=== PATIENT | male | born 1970 | race Caucasian/White ===

== ENCOUNTER 2021-09-11 16:43 | Inpatient (IN) | payer OTHER, SELFPAY ==
[2021-09-11] VITALS (11 sets, daily range): BP systolic 150–230; BP diastolic 70–102; PULSE 56–105; RESP 16–84; TEMP 36.2–37.2; O2SAT 95–99; BMI 56.9; BMI 56.5
--- NOTE | 2021-09-11 16:49 | NURSING ---
NO OLD EKGS
--- NOTE | 2021-09-11 16:54 | EKG12_ITS ---
Test Reason : CP Blood Pressure : / mmHG Vent. Rate : 103 BPM Atrial Rate : 103 BPM P-R Int : 174 ms QRS Dur : 100 ms QT Int : 328 ms P-R-T Axes : 044 000 043 degrees QTc Int : 429 ms Sinus tachycardia with frequent Premature ventricular complexes in a pattern of bigeminy Otherwise normal ECG Confirmed by CLARK STORM, JACQUES ([id number]), medical editor ENDI THOMPSON ([id number]) on 09/13/2021 1:31:28 PM Referred By: IZZY Confirmed By:JACQUES RODAS MD
--- NOTE | 2021-09-11 17:10 | RAD_ITS ---
STUDY: X-RAY CHEST REASON FOR EXAM: Male, 51 years old. chest pain TECHNIQUE: 1 view COMPARISON: None. FINDINGS: The cardiac silhouette is enlarged. Costophrenic angles are sharp. Lungs are clear. The trachea is midline. There is no pneumothorax. The bones are grossly intact. RAD/Chest 1 View (Portable) IMPRESSION: Enlarged cardiac silhouette. No acute pulmonary process. Electronically Signed: Silver Monte MD at 17:55 EDT ,
--- NOTE | 2021-09-11 17:13 | ED.VIS.CHEST ---
HPI History of Present Illness Chief Complaint: Chest Pain Narrative Narrative: 51-year-old male presenting with chest pain. He describes it as retrosternal pressure and he states this comes and goes. He states this started about a week and a half ago and has been coming and going since that time. He states that with his chest pressure he gets sweaty, nauseous, lightheaded. He states the symptoms can last for hours. He does report that he has had some problems with this in the past but never to this degree. He states he had a stress test last year which was normal. He states he does not have any known cardiac problems but does state that he has high blood pressure and borderline cholesterol for which he takes no medications typically. He states after he was discharged home from the hospital after his stress test he initially took some of the medications but then stopped. Over the last couple days he continued his lisinopril thinking that his symptoms would improve. Patient also reports that he is an everyday drinker and has about 7-8 shots a day. He also smokes 1 cigar a day. He denies fever, chills, cough. No GI or complaints. Patient does state that he feels as if he has a brain fog currently. PFSH PFSH Medical History Alcohol abuse GERD (gastroesophageal reflux disease) Hiatal hernia HTN (hypertension) Morbid obesity Tobacco use Home Medications allopurinol 100 mg PO DAILY 09/11/21 [History Last Taken Unknown] lisinopril 10 mg PO DAILY 09/11/21 [History Last Taken Unknown] Allergy/AdvReac Type Severity Reaction Status Date / Time No Known Allergies Allergy Verified 09/11/21 16:59 Social History household members: spouse Smoking Status: Current every day smoker Smokeless tobacco user: other alcohol intake: current alcohol intake frequency: 3 or more drinks per day details: 7-8 shots hard liquor daily. substance use type: does not use ROS ROS ED Constitutional Constitutional ED: Reports sweats; Denies chills or fever(s) Eyes Eyes: Denies blurry vision or change in vision ENT ENT ED: Denies rhinorrhea or sore throat Cardiovascular Cardiovascular: Reports as per HPI Respiratory/Chest Respiratory/Chest: Reports dyspnea; Denies cough Gastrointestinal Gastrointestinal: Reports nausea; Denies abdominal pain, diarrhea or vomiting Genitourinary Genitourinary ED: Denies dysuria or hematuria Musculoskeletal Musculoskeletal: Denies myalgias Integumentary Denies rash Neurologic Neurologic: Reports headache(s); Denies paresthesias or weakness Psychiatric Psychiatric: Denies depression EXAM Physical Exam Const Vital Signs: 09/11/21 16:43 09/11/21 16:51 09/11/21 16:54 Temperature 97.2 F L 97.8 F Temperature Source Temporal Temporal Pulse Rate 56 L 98 Respiratory Rate 17 18 Respiratory Effort Normal Non-Labored Blood Pressure 230/99 H 208/90 H Blood Pressure Mean 142 129 Pulse Ox 97 98 Oxygen Delivery Method Room Air Room Air Oxygen Flow Rate (L/min) 09/11/21 16:55 09/11/21 17:38 09/11/21 18:19 Temperature Temperature Source Pulse Rate 85 84 Respiratory Rate 16 16 Respiratory Effort Blood Pressure 167/95 H 171/72 H Blood Pressure Mean 119 105 Pulse Ox 98 95 98 Oxygen Delivery Method Nasal Cannula Nasal Cannula Nasal Cannula Oxygen Flow Rate (L/min) 2.5 2 2.5 09/11/21 19:00 09/11/21 20:00 Temperature Temperature Source Pulse Rate 85 79 Respiratory Rate 16 84 H Respiratory Effort Blood Pressure 150/102 H 177/73 H Blood Pressure Mean 118 107 Pulse Ox 98 98 Oxygen Delivery Method Room Air Nasal Cannula Oxygen Flow Rate (L/min) 2 Positive well nourished and obese General Appearance ED: NAD; Negative for pallor Nutritional Appearance: obese HEENT Reports moist mucous membranes normocephalic and atraumatic Eyes PERRL and EOMs intact bilaterally General Eye ED: Negative for pale conjunctiva or scleral icterus Neck supple Chest Wall inspection of chest normal Resp normal respiratory effort Effort and Inspection: respiratory distress Cardio regular rhythm Rate: bradycardia GI normal to inspection, nondistended, normoactive bowel sounds Extremity normal to inspection General Extremety ED: Negative for edema or tenderness General Extremity: Negative for edema Neuro oriented x3 and CN's II-XII intact bilaterally Sensorium / Orientation: awake and alert Motor Exam: strength 5/5 throughout Skin no rashes or lesions noted General Skin Exam: Negative for jaundice or pallor Heart Score History: Highly Suspicious ECG: Normal Age: >45 - <65 years Risk Factors: >/= 3 Risk Factors or History of CAD Troponin: </= Normal Limit Score: 5 MDM MDM MDM Narrative Medical decision making narrative: Patient presenting with chest pain. He has a history of hypertension and borderline hyperlipidemia. He has not been taking his medications as prescribed and just started his lisinopril again. He describes sometimes hours of chest pressure, diaphoresis, lightheadedness, nausea. He had this today prior to coming. His EKG performed on arrival shows a sinus rhythm with multiple frequent PVCs in a bigeminal pattern. No ST elevation or depression. On the monitor he appears to be flipping [id number] between his sinus rhythm without PVCs in bigeminal pattern. He states he can feel when the bigeminal pattern starts and he was able to demonstrate this to me. His CBC shows no leukocytosis. Hemoglobin stable at 15.7. Hematocrit 47.0. Platelets 181. Renal function and electrolytes within normal limits. High-sensitivity troponin is 11. Delta troponin is also 11. Chest x-ray on my interpretation shows no acute cardiopulmonary process and the radiologist agree. There does appear to be some slight cardiomegaly.. I did the patient had heart score of 5 based on his symptoms which were concerning, his risk factors of obesity, smoking, heavy drinking, uncontrolled hypertension, history of hyperlipidemia. Patient does not have a primary care provider for follow-up but I do have concern given his heart score. I discussed this with the hospitalist for admission. I did asked the patient if he thought that he has a possibility of going into withdrawal as he drinks several drinks a night every night. He does state that he might. He has not been without alcohol daily for a very long time. Impression: 1. Chest pain 2. EtOH abuse 3. Bigeminy Lab Data Attestation: I reviewed the patient's lab results. Labs: Laboratory Results - last 24 hr 09/11/21 09/11/21 09/11/21 17:00 17:00 19:15 WBC 8.0 RBC 4.87 Hgb 15.7 Hct 47.0 MCV 96.5 H MCH 32.2 H MCHC 33.4 RDW Std Deviation 44.3 H RDW Coeff of Michael 12.5 Plt Count 181 MPV 10.4 Immature Gran % (Auto) 0.300 Neut % (Auto) 64.0 Lymph % (Auto) 24.2 [place] % (Auto) 10.3 H Eos % (Auto) 0.8 Baso % (Auto) 0.4 Absolute Neuts (auto) 5.1 Absolute Lymphs (auto) 1.93 Nucleated RBC % 0 Sodium 139 Potassium 3.9 Chloride 106 Carbon Dioxide 27.0 Anion Gap 6 BUN 13 Creatinine 0.86 Estim Creat Clear Calc 129.51 Est GFR (MDRD) Af Amer 120 Est GFR (MDRD) Non-Af 99 BUN/Creatinine Ratio 15.0 Glucose 126 H Calcium 9.1 Magnesium 2.3 Troponin I High Sens 11 11 Ethyl Alcohol 09/11/21 Unknown WBC RBC Hgb Hct MCV MCH MCHC RDW Std Deviation RDW Coeff of Michael Plt Count MPV Immature Gran % (Auto) Neut % (Auto) Lymph % (Auto) [place] % (Auto) Eos % (Auto) Baso % (Auto) Absolute Neuts (auto) Absolute Lymphs (auto) Nucleated RBC % Sodium Potassium Chloride Carbon Dioxide Anion Gap BUN Creatinine Estim Creat Clear Calc Est GFR (MDRD) Af Amer Est GFR (MDRD) Non-Af BUN/Creatinine Ratio Glucose Calcium Magnesium Troponin I High Sens Ethyl Alcohol < 3.0 Radiography Diagnostic Testing: Clinical Impression(s) from Imaging Studies Chest X-Ray 09/11/21 17:10 IMPRESSION: Enlarged cardiac silhouette. No acute pulmonary process. Electronically Signed: Silver Monte MD at 17:55 EDT , Discharge Plan Triage Chief Complaint: Chest Pain ED Provider: Jose Perez Dx/Rx/DC Orders Prescriptions: No Action allopurinol 100 mg Tablet 100 mg PO DAILY RF: 0 lisinopril 10 mg Tablet 10 mg PO DAILY RF: 0 Primary Care Provider: Care Physician,No Primary
[2021-09-11] MEDS: Aspirin 81 MG TAB.CHEW 324 MG PO (17:16)
[2021-09-11 17:20] LABS: Absolute Lymphocyte Count 1.93 X10^3/uL (0.83-4.51); Absolute Neutrophil Count 5.1 X10^3/uL (2.0-7.7); Basophil# 0.03 X10^3/uL; Basophil% 0.4 % (0-1); Eosinophil# 0.06 X10^3/uL; Eosinophils% 0.8 % (0-5); Hemoglobin 15.7 g/dL (13.0-16.5); Lymphocyte # 1.93 X10^3/ul (0.83-4.51); Lymphocyte % 24.2 % (19-41); Mean Corp Hgb Conc 33.4 g/dL (32-36); Mean Corpuscular Hgb 32.2 pg (27.0-32.0); Mean Corpuscular Volume 96.5 fL (80-94); Mean Platelet Vol. 10.4 fl (6.2-12.0); Monocyte# 0.82 X10^3/uL; Monocyte% 10.3 % (0-10); NRBC Flagged by Analyzer 0 % (0-5); Platelet Count 181 K/mm3 (150-450); RBC Distribution Width CV 12.5 % (11.6-14.6); RBC Distribution Width SD 44.3 fl (35.1-43.9); Red Blood Count 4.87 M/mm3 (4.6-6.2)
[2021-09-11 17:25] LABS: Anion Gap 6 (5-15); BUN 13 mg/dL (7-18); Calcium,Total 9.1 mg/dL (8.5-10.1); Chloride 106 mmol/L (98-107); Creatinine, Serum 0.86 mg/dL (0.70-1.30); EST Glomerular Filtration Rate 99 mL/min (>60); Est Glom Filt Rate - Afr Amer 120 mL/min (>60); Estimated Creatinine Clearance 129.51 ml/min; Glucose 126 mg/dL (74-106); Magnesium 2.3 mg/dL (1.6-2.6); Potassium 3.9 mmol/L (3.5-5.1); Sodium Level 139 mmol/L (136-145); Troponin-I HS (w/2H Reflex) 11 pg/mL (3.0-78.0)
[2021-09-11 17:53] LABS: Alcohol, Blood (Medical)-Serum < 3.0 mg/dL
[2021-09-11 19:04] LABS: Reflex Troponin-HS? (from REC) Y
[2021-09-11 19:35] LABS: Troponin-I HS 11 pg/mL (3.0-78.0)
--- NOTE | 2021-09-11 21:01 | PCM.HP.STD ---
HPI - General General Date of Admission: 09/11/21 Date of Service: 09/11/21 Chief Complaint: Chest pain HPI Narrative The patient is a 57 y/o M w/ PMHx: Tobacco use, EtOH abuse (7-8 shots liquor daily), Morbid Obesity, HTN, GERD w/ hiatal hernia, Gout who presents to the [facility] ED on 09/11/21 with history of poor compliance with his medications noted to have not been taking his blood pressure medications over prolonged period of time only recently restarting with history of onset chest discomfort, described as retrosternal pressure that is intermittent over the last week and a half with onset of diaphoresis, nausea without emesis and lightheadedness when the symptoms do come on, rates discomfort 5-6/10 in severity and notes they can last for hours with similar episodes prior but never as severe with a stress test a year prior noted to be normal prompting ED evaluation. He does note that over the last couple days he did start taking his lisinopril again and his symptoms seem to improve. He does admit to heavy drinking of at least 7-8 shots of liquor daily. His last EtOH intake was the evening prior. Patient currently denies any specific withdrawal symptoms including tremors, restlessness, agitation, nausea or any tactile disturbances but he is only nearing the timeline when he would start to have his evening drinks. Work-up in the ED included T97.2, heart rate initially 56 however primarily in the 80s, initial BP 230/99 with most recent repeat 177/73, respiratory rate 17, 97 to 98% on room air initially, CBC with WC 8, hemoglobin 15.7, platelet 181 without marked shift, BMP unremarkable aside glucose 126, magnesium 2.3, ethyl alcohol less than 3, troponin initial 11 with repeat 11, chest x-ray with enlarged cardiac silhouette otherwise no acute cardiopulmonary findings, EKG with sinus rhythm with frequent PVCs in bigeminal pattern with no acute evidence of ischemia. In the ED patient ministered aspirin 324 mg p.o. x1. [facility] Medical History Alcohol abuse GERD (gastroesophageal reflux disease) Hiatal hernia HTN (hypertension) Morbid obesity KAMILA on CPAP Tobacco use Home Medications allopurinol 100 mg PO DAILY 09/11/21 [History Last Taken Unknown] lisinopril 10 mg PO DAILY 09/11/21 [History Last Taken Unknown] Allergy/AdvReac Type Severity Reaction Status Date / Time No Known Allergies Allergy Verified 09/11/21 16:59 Family History (Updated 09/11/21 @ 21:[address] Hayley Ascencio MD) Father CAD (coronary artery disease) Hypertension Heart disease other (Denies any marked maternal family history including HD, DM, CA.) Surgical History (Updated 09/11/21 @ 21:[address] Hayley Ascencio MD) History of surgery on arm History of umbilical hernia repair Social History (Updated 09/11/21 @ 21:[address] Hayley Ascencio MD) household members: spouse Smoking Status: Current every day smoker Smokeless tobacco user: other alcohol intake: current alcohol intake frequency: 3 or more drinks per day details: 7-8 shots hard liquor daily. substance use type: does not use ROS ROS Narrative Admission Review of Systems: CONSTITUTIONAL: No weight loss, fever, chills, + weakness or fatigue. HEENT: Eyes: No visual loss, blurred vision, double vision or yellow sclerae. Ears, Nose, Throat: No hearing loss, sneezing, congestion, runny nose or sore throat. SKIN: No rash or itching, lesions, wounds. CARDIOVASCULAR: + Chest pain, chest pressure or chest discomfort, No palpitations, edema, orthopnea, syncopal events. RESPIRATORY: + Shortness of breath, No cough or sputum, wheezing, hemoptysis. GASTROINTESTINAL: + Nausea, No anorexia, vomiting or diarrhea, abdominal pain, melena, BRBPR. GENITOURINARY: No dysuria, frequency, urgency or retention. NEUROLOGICAL: No headache, dizziness, syncope, paralysis, ataxia, numbness or tingling in the extremities, focal weakness, change in bowel or bladder control, seizure. MUSCULOSKELETAL: No muscle, back pain, joint pain or stiffness. HEMATOLOGIC: No anemia, bleeding or bruising. LYMPHATICS: No enlarged nodes. No history of splenectomy. PSYCHIATRIC: No history of depression or anxiety. ENDOCRINOLOGIC: + reports of sweating, cold or heat intolerance. No polyuria or polydipsia. ALLERGIES: No history of asthma, hives, eczema or rhinitis. Vital Signs Vital Signs Vital Signs: 09/11/21 16:43 09/11/21 16:51 09/11/21 16:54 Temperature 97.2 F L 97.8 F Temperature Source Temporal Temporal Pulse Rate 56 L 98 Respiratory Rate 17 18 Respiratory Effort Normal Non-Labored Blood Pressure 230/99 H 208/90 H Blood Pressure Mean 142 129 Pulse Ox 97 98 Oxygen Delivery Method Room Air Room Air Oxygen Flow Rate (L/min) 09/11/21 16:55 09/11/21 17:38 09/11/21 18:19 Temperature Temperature Source Pulse Rate 85 84 Respiratory Rate 16 16 Respiratory Effort Blood Pressure 167/95 H 171/72 H Blood Pressure Mean 119 105 Pulse Ox 98 95 98 Oxygen Delivery Method Nasal Cannula Nasal Cannula Nasal Cannula Oxygen Flow Rate (L/min) 2.5 2 2.5 09/11/21 19:00 09/11/21 20:00 Temperature Temperature Source Pulse Rate 85 79 Respiratory Rate 16 84 H Respiratory Effort Blood Pressure 150/102 H 177/73 H Blood Pressure Mean 118 107 Pulse Ox 98 98 Oxygen Delivery Method Room Air Nasal Cannula Oxygen Flow Rate (L/min) 2 Weight Weight: 480 lb Body Mass Index (BMI) 56.9 Physical Exam Narrative Physical Examination: General: Awake, alert, oriented x 3 and cooperative, seated upright in the ED bed in no apparent distress, denies any current chest discomfort. Skin: Normal color, normal turgor, no icterus, no cyanosis. HEENT: AT/NC, EOMI, PERRLA, MMM, no carotid bruits or JVD noted; however, thickened neck makes evaluation. Lungs: Diminished, greater bases, appropriate effort, no rales, ronchi or wheezing. Heart: Currently regular rate and rhythm, on monitor recently went out of what appeared to be bigeminy; no gallop, rub audible. Abdomen: Soft, morbidly obese NTTP, no obvious distention but difficult evaluation given habitus, distant normal BS, no obvious HSM; however, habitus makes evaluation difficult. Extremities: No cyanosis, clubbing, or edema. Neurological: Patient awake, alert, oriented as noted, cognitive function intact; pupils equally reactive to light and accommodation, cranial nerves II-XII grossly normal, moving all 4 extremities, no focal deficits, strength preserved. Psychiatric: Affect appears mildly fatigued otherwise normal, no acute evidence of depressive or anxiety feelings. Results Lab / Micro Data Result Diagrams: 09/11/21 17:00 09/11/21 17:00 Labs: Laboratory Results - last 24 hr 09/11/21 17:00: WBC 8.0, RBC 4.87, Hgb 15.7, Hct 47.0, MCV 96.5 H, MCH 32.2 H, MCHC 33.4, RDW Std Deviation 44.3 H, RDW Coeff of Michael 12.5, Plt Count 181, MPV 10.4, Immature Gran % (Auto) 0.300, Neut % (Auto) 64.0, Lymph % (Auto) 24.2, [place] % (Auto) 10.3 H, Eos % (Auto) 0.8, Baso % (Auto) 0.4, Absolute Neuts (auto) 5.1, Absolute Lymphs (auto) 1.93, Nucleated RBC % 0 09/11/21 17:00: Sodium 139, Potassium 3.9, Chloride 106, Carbon Dioxide 27.0, Anion Gap 6, BUN 13, Creatinine 0.86, Estim Creat Clear Calc 129.51, Est GFR (MDRD) Af Amer 120, Est GFR (MDRD) Non-Af 99, BUN/Creatinine Ratio 15.0, Glucose 126 H, Calcium 9.1, Magnesium 2.3, Troponin I High Sens 11 09/11/21 19:15: Troponin I High Sens 11 09/11/21 : Ethyl Alcohol < 3.0 Radiology Impression Chest X-Ray 09/11/21 17:10 IMPRESSION: Enlarged cardiac silhouette. No acute pulmonary process. Electronically Signed: Silver Monte MD at 17:55 EDT Reading Location ID and State: [address] [place] [address] Tel , Service support , Assessment & Plan Assessment/Plan (1) Chest pain: QUALIFIERS: Chest pain type: unspecified Qualified Code(s): R07.9 - Chest pain, unspecified (2) Bigeminy: PLAN: The patient is a 57 y/o M w/ PMHx: Tobacco use, EtOH abuse (7-8 shots liquor daily), Morbid Obesity, HTN, GERD w/ hiatal hernia, Gout who presents to the [facility] ED on 09/11/21 with history of poor compliance with his medications noted to have not been taking his blood pressure medications over prolonged period of time only recently restarting with history of onset chest discomfort, described as retrosternal pressure that is intermittent over the last week and a half with onset of diaphoresis, nausea without emesis and lightheadedness when the symptoms do come on, rates discomfort 5-6/10 in severity. #1. Chest Pain, intermittent with Bigeminy/Frequent PVCs: ED evaluation with troponin initial 11 with repeat 11, chest x-ray with enlarged cardiac silhouette otherwise no acute cardiopulmonary findings, EKG with sinus rhythm with frequent PVCs in bigeminal pattern with no acute evidence of ischemia, noted intermittent on telemetry. Will admit to PCU, will add low dose BB, increase home lisinopril, place on a monitored bed to assure no acute myocardial infarction with serial cardiac enzymes and EKGs. If serial enzymes and EKGs remain unchanged and stable would plan for cardiac stress testing on Monday. Magnesium level already obtained per the ED noted to be normal. FLP in the AM. ASA, NG, morphine. #2. Hypertension, uncontrolled, urgency: Admission presentation with significantly elevated BP 230/99 initially, improved to most recently 177/73, will increase home lisinopril regimen and start BB given #1, may require additional medication addition however we will continue to closely monitor, as needed IV hydralazine in interim as well. #3. EtOH Abuse with interest in alcohol detoxification: Patient notes routine consumption of 7-8 shots of liquor per day. Will maintain on CIWA protocol, MVI, thiamine and folic acid. Given heavy intake will initiate and continue on protocol with taper course of Phenobarbital, scheduled gabapentin for seizure prophylaxis, as needed Catapres, Bentyl, Vistaril, IV fluids, IV antiemetics, Tylenol as needed for pain. Will consult Case management for assistance for transition to next level of rehabilitation care. Mag, phos pending. Discussed frankly given patient's is also an alcoholic it would benefit for her to also be treated and discussed potential plans as well as offered admission for alcohol withdrawal treatment. #4. GERD with history of hiatal hernia: We will place on famotidine in case contributing to acute presentation. #5. Morbid Obesity: Weight loss and lifestyle changes encouraged, nutrition consulted. #6. Tobacco Abuse: Encouraged cessation, inpatient consultation per RT, NR if desired. #7. Gout: We will continue patient home allopurinol regimen. #8. KAMILA: CPAP q HS. #9. DVT prophylaxis: SCDs, Lovenox. Charges/Coding Visit Charges Inpatient E&M: 56443 Init Hosp L3
[2021-09-11 21:42] LABS: Magnesium 2.4 mg/dL (1.6-2.6); Phosphorus 2.8 mg/dL (2.5-4.9)
--- NOTE | 2021-09-11 22:18 | EKG12_ITS ---
Test Reason : AM EKG Blood Pressure : / mmHG Vent. Rate : 062 BPM Atrial Rate : 062 BPM P-R Int : 196 ms QRS Dur : 106 ms QT Int : 406 ms P-R-T Axes : -08 027 049 degrees QTc Int : 412 ms Normal sinus rhythm Normal ECG When compared with ECG of 11-SEP-2021 22:32, MANUAL COMPARISON REQUIRED, DATA IS UNCONFIRMED Confirmed by CLARK STORM, JACQUES ([id number]), web editor ENID THOMPSON ([id number]) on 09/14/2021 8:16:46 AM Referred By: JERMAINE Confirmed By:JACQUES RODAS MD
[2021-09-11] MEDS: Metoprolol Tartrate 25 MG Tablet PO (22:44)
[2021-09-11] MEDS: Famotidine 20 MG Tablet PO (22:44)
[2021-09-11] MEDS: Lisinopril 20 MG Tablet PO (22:44)
[2021-09-11] MEDS: Enoxaparin 40 MG/0.4 ML Syringe SC (22:45)
[2021-09-11] MEDS: Phenobarbital 32.4 MG Tablet 64.8 MG PO (22:54)
[2021-09-11 23:36] LABS: Troponin-I HS 12 pg/mL (3.0-78.0)
[2021-09-12] VITALS (17 sets, daily range): BP systolic 125–172; BP diastolic 63–95; PULSE 64–85; RESP 15–22; TEMP 35.8–37; O2SAT 94–100
[2021-09-12] MEDS: Phenobarbital 32.4 MG Tablet 64.8 MG PO ×6 (02:39→21:51)
[2021-09-12 05:40] LABS: Absolute Neutrophil Count 3.4 X10^3/uL (2.0-7.7); Basophil# 0.03 X10^3/uL; Basophil% 0.5 % (0-1); Eosinophil# 0.11 X10^3/uL; Eosinophils% 1.8 % (0-5); Hematocrit 43.1 % (40-54); Hemoglobin 13.9 g/dL (13.0-16.5); Lymphocyte % 32.5 % (19-41); Mean Corp Hgb Conc 32.3 g/dL (32-36); Mean Corpuscular Hgb 32.6 pg (27.0-32.0); Mean Corpuscular Volume 100.9 fL (80-94); Mean Platelet Vol. 10.3 fl (6.2-12.0); Monocyte# 0.57 X10^3/uL; Monocyte% 9.3 % (0-10); NRBC Flagged by Analyzer 0 % (0-5); Neutrophil # 3.43 X10^3/uL (2.7-7.7); Neutrophil % 55.6 % (47-70); Platelet Count 145 K/mm3 (150-450); RBC Distribution Width CV 12.9 % (11.6-14.6); RBC Distribution Width SD 47.7 fl (35.1-43.9); Red Blood Count 4.27 M/mm3 (4.6-6.2); White Blood Count 6.2 K/mm3 (4.4-11.0)
[2021-09-12 06:08] LABS: ALB/GLOB Ratio 0.9 RATIO (0.9-2.4); AST(SGOT) 30 U/L (15-37); Alanine Aminotransfer ALT/SGPT 52 U/L (16-61); Albumin, Serum 3.1 g/dL (3.2-5.0); Alkaline Phosphatase 65 U/L (45-117); Anion Gap 5 (5-15); BUN 12 mg/dL (7-18); BUN/Creat Ratio 13.2 RATIO (10-20); Calcium,Total 8.4 mg/dL (8.5-10.1); Chloride 104 mmol/L (98-107); Cholesterol 201 mg/dL (200); Creatinine, Serum 0.91 mg/dL (0.70-1.30); EST Glomerular Filtration Rate 94 mL/min (>60); Est Glom Filt Rate - Afr Amer 113 mL/min (>60); Estimated Creatinine Clearance 122.39 ml/min; Globulin 3.4 g/dL (2.2-4.2); Glucose 116 mg/dL (74-106); High Density Lipoprotein 46 mg/dL; Protein, Total 6.5 g/dL (6.4-8.2); Sodium Level 137 mmol/L (136-145); Triglycerides 362 mg/dL; Very Low Density Lipoprotein 72 mg/dL (5-40)
[2021-09-12] MEDS: Thiamine Hydrochloride 100 MG Tablet PO (08:56)
[2021-09-12] MEDS: Folic Acid 1 MG Tablet PO (08:56)
[2021-09-12] MEDS: Aspirin E.C. 81 MG Tablet PO (08:56)
[2021-09-12] MEDS: Metoprolol Tartrate 25 MG Tablet PO ×2 (08:57→21:52)
[2021-09-12] MEDS: Enoxaparin 40 MG/0.4 ML Syringe SC ×2 (08:57→21:54)
[2021-09-12] MEDS: Lisinopril 20 MG Tablet PO (08:59)
[2021-09-12] MEDS: Allopurinol 100 MG Tablet PO (08:59)
[2021-09-12] MEDS: Famotidine 20 MG Tablet PO ×2 (08:59→21:54)
--- NOTE | 2021-09-12 10:03 | PCM.PN.HOSP ---
Subjective Subjective Doing well denies any chest pain and no significant alcohol withdrawal symptoms at this time. CIWA score of 0 this morning Objective Data Objective Data Vital Signs: Vital Signs Temp Pulse Resp BP Pulse Ox 98.3 F 74 16 165/89 H 97 09/12/21 08:35 09/12/21 08:57 09/12/21 08:35 09/12/21 08:35 09/12/21 08:35 Oxygen Flow Rate (L/min) 3 Oxygen Delivery Method Room Air Weight: 476 lb 10.23 oz Body Mass Index (BMI) 56.5 Intake & Output: Intake and Output for Last 24 Hours 09/11/21 09/12/21 09/13/21 03:59 03:59 03:59 Intake Total 120 / 120 1999 Balance 120 / 120 1999 Lab / Micro Data Result Diagrams: 09/12/21 05:19 09/12/21 05:19 Labs: Laboratory Results - last 24 hr 09/11/21 17:00: WBC 8.0, RBC 4.87, Hgb 15.7, Hct 47.0, MCV 96.5 H, MCH 32.2 H, MCHC 33.4, RDW Std Deviation 44.3 H, RDW Coeff of Michael 12.5, Plt Count 181, MPV 10.4, Immature Gran % (Auto) 0.300, Neut % (Auto) 64.0, Lymph % (Auto) 24.2, [place] % (Auto) 10.3 H, Eos % (Auto) 0.8, Baso % (Auto) 0.4, Absolute Neuts (auto) 5.1, Absolute Lymphs (auto) 1.93, Nucleated RBC % 0 09/11/21 17:00: Sodium 139, Potassium 3.9, Chloride 106, Carbon Dioxide 27.0, Anion Gap 6, BUN 13, Creatinine 0.86, Estim Creat Clear Calc 129.51, Est GFR (MDRD) Af Amer 120, Est GFR (MDRD) Non-Af 99, BUN/Creatinine Ratio 15.0, Glucose 126 H, Calcium 9.1, Magnesium 2.3, Troponin I High Sens 11 09/11/21 19:15: Troponin I High Sens 09/11/21 19:15: Phosphorus 2.8, Magnesium 2.4 09/11/21 22:54: Troponin I High Sens 22 : Ethyl Alcohol < 3.0 09/12/21 05:19: WBC 6.2, RBC 4.27 L, Hgb 13.9, Hct 43.1, MCV 100.9 H, MCH 32.6 H, MCHC 32.3, RDW Std Deviation 47.7 H, RDW Coeff of Michael 12.9, Plt Count 145 L, MPV 10.3, Immature Gran % (Auto) 0.300, Neut % (Auto) 55.6, Lymph % (Auto) 32.5, [place] % (Auto) 9.3, Eos % (Auto) 1.8, Baso % (Auto) 0.5, Absolute Neuts (auto) 3.4, Absolute Lymphs (auto) 2.00, Nucleated RBC % 0 09/12/21 05:19: Sodium 137, Potassium 4.0, Chloride 104, Carbon Dioxide 28.0, Anion Gap 5, BUN 12, Creatinine 0.91, Estim Creat Clear Calc 122.39, Est GFR (MDRD) Af Amer 113, Est GFR (MDRD) Non-Af 94, BUN/Creatinine Ratio 13.2, Glucose 116 H, Calcium 8.4 L, Total Bilirubin 0.50, AST 30, ALT 52, Alkaline Phosphatase 65, Total Protein 6.5, Albumin 3.1 L, Globulin 3.4, Albumin/Globulin Ratio 0.9, Triglycerides 362 H, Cholesterol 201 H, LDL Cholesterol 83, VLDL Cholesterol 72 H, HDL Cholesterol 46 Radiography Diagnostic Testing: Radiology Impression Chest X-Ray 09/11/21 17:10 IMPRESSION: Enlarged cardiac silhouette. No acute pulmonary process. Electronically Signed: Silver Monte MD at 17:55 EDT , Physical Exam Const alert, oriented x3 and no apparent distress General Appearance: cooperative Nutritional Appearance: morbidly obese HEENT normocephalic and moist oral mucous membranes Eyes PERRL, EOMs intact bilaterally and conjunctivae normal Neck supple and no JVD Resp normal respiratory effort, no retractions, no use of accessory muscles and clear to auscultation bilaterally Auscultation: Negative for crackles, rales, rhonchi or wheezes Cardio regular rate, regular rhythm, S1 normal heart sound, S2 normal heart sound and no murmurs GI soft to palpation, non-tender and non-distended; Negative for hepatosplenomegaly Extremity no clubbing, cyanosis or edema Skin no rashes or lesions noted Neuro no focal motor deficits and no sensory deficits noted Psych affect normal Appearance: appropriate Assessment & Plan Assessment/Plan (1) Chest pain: QUALIFIERS: Chest pain type: unspecified Qualified Code(s): R07.9 - Chest pain, unspecified (2) Bigeminy: PLAN: 1. Chest pain with intermittent bigeminy/HTN/morbid obesity ? Troponins are unremarkable therefore we will proceed with stress test in the morning ? Advised weight loss, BMI of 56.5 ? Continue with his lisinopril, will hold off on making any blood pressure medication adjustment secondary to the fact that he is also going through alcohol withdrawal 2. Alcohol withdrawal/tobacco abuse ? Him and his are both going through alcohol withdrawal currently their last drink was Monday evening. ? Continue with the alcohol withdrawal protocol ? We will have him follow-up with 180 while here to develop an outpatient treatment plan ? Encouraged tobacco cessation 3. Gout ? Stable ? Continue with allopurinol 4. KAMILA ? Stable ? Continue with CPAP at night DVT: Lovenox Charges/Coding Visit Charges Inpatient E&M: 27122 Subs Hosp L2
[2021-09-12] MEDS: 0.9% Normal Saline 1,000 ML 100 ML IV (23:52)
[2021-09-12] MEDS: 0.9% Saline Lock 10 ML Syringe IV (23:52)
[2021-09-13] VITALS (16 sets, daily range): BP systolic 147–171; BP diastolic 83–108; PULSE 60–103; RESP 16–18; TEMP 36.3–37.1; O2SAT 94–99
[2021-09-13] MEDS: Phenobarbital 32.4 MG Tablet 64.8 MG PO ×6 (02:45→22:57)
[2021-09-13 05:03] LABS: Absolute Lymphocyte Count 1.66 X10^3/uL (0.83-4.51); Basophil# 0.03 X10^3/uL; Basophil% 0.6 % (0-1); Eosinophils% 1.9 % (0-5); Hematocrit 41.3 % (40-54); Hemoglobin 13.5 g/dL (13.0-16.5); Lymphocyte # 1.66 X10^3/ul (0.83-4.51); Lymphocyte % 31.1 % (19-41); Mean Corp Hgb Conc 32.7 g/dL (32-36); Mean Corpuscular Hgb 32.5 pg (27.0-32.0); Mean Corpuscular Volume 99.3 fL (80-94); Mean Platelet Vol. 10.8 fl (6.2-12.0); Monocyte# 0.49 X10^3/uL; Monocyte% 9.2 % (0-10); NRBC Flagged by Analyzer 0 % (0-5); Neutrophil # 3.04 X10^3/uL (2.7-7.7); Neutrophil % 56.8 % (47-70); Platelet Count 137 K/mm3 (150-450); RBC Distribution Width CV 12.5 % (11.6-14.6); RBC Distribution Width SD 45.6 fl (35.1-43.9); Red Blood Count 4.16 M/mm3 (4.6-6.2); White Blood Count 5.3 K/mm3 (4.4-11.0)
[2021-09-13 05:27] LABS: ALB/GLOB Ratio 0.8 RATIO (0.9-2.4); AST(SGOT) 25 U/L (15-37); Alanine Aminotransfer ALT/SGPT 46 U/L (16-61); Alkaline Phosphatase 64 U/L (45-117); Anion Gap 6 (5-15); BUN 12 mg/dL (7-18); BUN/Creat Ratio 14.3 RATIO (10-20); Calcium,Total 8.1 mg/dL (8.5-10.1); Chloride 103 mmol/L (98-107); Creatinine, Serum 0.84 mg/dL (0.70-1.30); EST Glomerular Filtration Rate 102 mL/min (>60); Est Glom Filt Rate - Afr Amer 124 mL/min (>60); Estimated Creatinine Clearance 132.59 ml/min; Globulin 3.6 g/dL (2.2-4.2); Glucose 108 mg/dL (74-106); Protein, Total 6.6 g/dL (6.4-8.2); Sodium Level 138 mmol/L (136-145)
--- NOTE | 2021-09-13 05:55 | EKG12_ITS ---
Test Reason : CP FLOOR Blood Pressure : / mmHG Vent. Rate : 096 BPM Atrial Rate : 096 BPM P-R Int : 182 ms QRS Dur : 100 ms QT Int : 340 ms P-R-T Axes : 058 008 047 degrees QTc Int : 429 ms Sinus rhythm with frequent Premature ventricular complexes in a pattern of bigeminy Otherwise normal ECG When compared with ECG of 11-SEP-2021 16:58, MANUAL COMPARISON REQUIRED, DATA IS UNCONFIRMED Confirmed by CLARK STORM, JACQUES ([id number]), online content editor ENID THOMPSON ([id number]) on 09/14/2021 8:17:52 AM Referred By: MERLENE Confirmed By:JACQUES RODAS MD
[2021-09-13] MEDS: Lisinopril 20 MG Tablet PO (06:22)
[2021-09-13] MEDS: Aspirin E.C. 81 MG Tablet PO (06:22)
[2021-09-13] MEDS: Folic Acid 1 MG Tablet PO (08:13)
[2021-09-13] MEDS: Thiamine Hydrochloride 100 MG Tablet PO (08:13)
--- NOTE | 2021-09-13 08:43 | CASEMGMT ---
Per RN physician has asked that Yovany, pain management specialist see patient as he is interested in detox and treatment. SW called Yovany and requested that she see patient. Korin Roberson MSW SHON
--- NOTE | 2021-09-13 08:56 | PN.HOSP_ITS ---
Subjective Subjective Doing well, denies any shortness of breath or chest pain. Going through withdrawal however symptoms are not terrible, CIWA of 0 Objective Data Objective Data Vital Signs: Vital Signs Temp Pulse Resp BP Pulse Ox 97.5 F L 81 17 147/87 H 99 09/13/21 05:57 09/13/21 07:01 09/13/21 07:01 09/13/21 05:57 09/13/21 07:01 Oxygen Flow Rate (L/min) 3 Oxygen Delivery Method CPAP Weight: 472 lb 14.264 oz Body Mass Index (BMI) 56.5 Intake & Output: Intake and Output for Last 24 Hours 09/12/21 09/13/21 09/14/21 03:59 03:59 03:59 Intake Total 120 / 120 2300 / 2300 0 / 0 Balance 120 / 120 2300 / 2300 0 / 0 Lab / Micro Data Result Diagrams: 09/13/21 04:16 09/13/21 04:16 Labs: Laboratory Results - last 24 hr 09/13/21 04:16: WBC 5.3, RBC 4.16 L, Hgb 13.5, Hct 41.3, MCV 99.3 H, MCH 32.5 H, MCHC 32.7, RDW Std Deviation 45.6 H, RDW Coeff of Michael 12.5, Plt Count 137 L, MPV 10.8, Immature Gran % (Auto) 0.400, Neut % (Auto) 56.8, Lymph % (Auto) 31.1, [place] % (Auto) 9.2, Eos % (Auto) 1.9, Baso % (Auto) 0.6, Absolute Neuts (auto) 3.0, Absolute Lymphs (auto) 1.66, Nucleated RBC % 0 09/13/21 04:16: Sodium 138, Potassium 4.0, Chloride 103, Carbon Dioxide 29.0, Anion Gap 6, BUN 12, Creatinine 0.84, Estim Creat Clear Calc 132.59, Est GFR (MDRD) Af Amer 124, Est GFR (MDRD) Non-Af 102, BUN/Creatinine Ratio 14.3, Glucose 108 H, Calcium 8.1 L, Total Bilirubin 0.40, AST 25, ALT 46, Alkaline Phosphatase 64, Total Protein 6.6, Albumin 3.0 L, Globulin 3.6, Albumin/Globulin Ratio 0.8 L Physical Exam Const alert, oriented x3 and no apparent distress General Appearance: cooperative Nutritional Appearance: morbidly obese HEENT normocephalic and moist oral mucous membranes Eyes PERRL, EOMs intact bilaterally and conjunctivae normal Neck supple and no JVD Resp normal respiratory effort, no retractions, no use of accessory muscles and clear to auscultation bilaterally Auscultation: Negative for crackles, rales, rhonchi or wheezes Cardio regular rate, regular rhythm, S1 normal heart sound, S2 normal heart sound and no murmurs GI soft to palpation, non-tender and non-distended; Negative for hepatosplenomegaly Extremity no clubbing, cyanosis or edema Skin no rashes or lesions noted Neuro no focal motor deficits and no sensory deficits noted Psych affect normal Appearance: appropriate Assessment & Plan Assessment/Plan (1) Chest pain: QUALIFIERS: Chest pain type: unspecified Qualified Code(s): R07.9 - Chest pain, unspecified (2) Bigeminy: PLAN: 1. Chest pain with intermittent bigeminy/HTN/morbid obesity ? Unfortunately he exceeds the weight limit of the stress test table therefore given his improvement in his chest pain and the fact that his troponins have remained negative we will have him follow-up with his PCP and schedule this as an outpatient at a facility that can do his stress test ? Advised weight loss, BMI of 56.5 ? Continue with his lisinopril, will hold off on making any blood pressure medication adjustment secondary to the fact that he is also going through alcohol withdrawal 2. Alcohol withdrawal/tobacco abuse ? Him and his are both going through alcohol withdrawal currently their last drink was Monday evening. ? Continue with the alcohol withdrawal protocol ? We will have him follow-up with 180 while here to develop an outpatient treatment plan ? Encouraged tobacco cessation 3. Gout ? Stable ? Continue with allopurinol 4. KAMILA ? Stable ? Continue with CPAP at night DVT: Lovenox Charges/Coding Visit Charges Inpatient E&M: 69253 Subs Hosp L2
[2021-09-13] MEDS: Allopurinol 100 MG Tablet PO (09:30)
[2021-09-13] MEDS: Famotidine 20 MG Tablet PO ×2 (09:30→22:50)
[2021-09-13] MEDS: Metoprolol Tartrate 25 MG Tablet PO ×2 (09:30→22:50)
[2021-09-13] MEDS: Enoxaparin 40 MG/0.4 ML Syringe SC ×2 (09:30→22:50)
[2021-09-13] MEDS: 0.9% Normal Saline 1,000 ML 100 ML IV (10:07)
--- NOTE | 2021-09-13 13:27 | ADDICTION ---
Hospital Sourcing Intern met with PT, gave him the Addiction Workbook, and offered him resources in the [facility] area. Pt was asleep, Addiction Workbook placed in his room. This worker will attempt to see pt tomorrow.
--- NOTE | 2021-09-13 14:50 | CASEMGMT ---
RN indicated patient wanted to talk with Yovany, Adjunct Professor Of Voice. She dropped off a book, but he was sleeping. Yovany wrote a note and indicated she would be in to see patient tomorrow. Patient wants to talk with her today as he is being discharged tomorrow. BRODERICK called Yovany and she said she will be in to see patient today. BRODERICK notified RN. Korin Roberson PIPE WELDER SHON
--- NOTE | 2021-09-13 15:52 | CHAPLAIN ---
Type of Pastoral Visit _x__ Initial Visit ___ Follow-up Visit ___ On-call Visit ___ General Patient Visit ___ Spiritual Assessment ___ Family Conference ___ Bereavement ___ Rapid Response ___ Code Blue ___ Other (describe below) Pastoral Care Referral From _x__ Patient ___ Family ___ Nurse ___ Physician ___ Building Supplies Salesperson Retail ___ Desktop Support Consultant ___ Other (describe below) Sacrament/Intervention _x__ Active listening ___ Anointing ___ Caodaism ___ Bereavement ___ Communion _x__ Avelina exploration ___ _x__ Life review _x__ Prayer ___ Reconciliation ___ Sacrament of Sick _x__ Supportive presence ___ Wedding ___ Other (describe below) Pastoral Comments patient requested visit from this fresh foods clerk; pt talks about his progression into alcohol abuse and offer of DR to start rehab program; pt states that he is open to help and support of spiritual care; pt is unsure of what steps are next for him but seeks emotional support for that; presence made available to patient to listen and allow his expression of thoughts and feelings; pt welcomes prayer; pt would like a second visit tomorrow if possible
[2021-09-13] MEDS: hydrALAZINE 20 MG/ML Vial 10 MG IV (17:55)
[2021-09-13] MEDS: 0.9% Saline Lock 10 ML Syringe IV (17:55)
[2021-09-14] VITALS (8 sets, daily range): BP systolic 127–139; BP diastolic 71–89; PULSE 65–85; RESP 14–21; TEMP 36.6–36.7; O2SAT 96–99
[2021-09-14] MEDS: Phenobarbital 32.4 MG Tablet 64.8 MG PO ×2 (02:46→06:35)
[2021-09-14] MEDS: Thiamine Hydrochloride 100 MG Tablet PO (08:07)
[2021-09-14] MEDS: Folic Acid 1 MG Tablet PO (08:07)
[2021-09-14] MEDS: Aspirin E.C. 81 MG Tablet PO (08:07)
--- NOTE | 2021-09-14 08:33 | PN.HOSP_ITS ---
Subjective Subjective Feeling better. No further chest pain since admission. States that he will have chest pain when he wake up in the morning and persist for hours. Sometimes worse with activity sometimes not. It was inconsistent. Objective Data Objective Data Vital Signs: Vital Signs Temp Pulse Resp BP Pulse Ox 36.7 C 85 18 139/89 H 97 09/14/21 08:05 09/14/21 08:05 09/14/21 08:05 09/14/21 08:05 09/14/21 08:05 Oxygen Flow Rate (L/min) 3 Oxygen Delivery Method Room Air Weight: 214.1 kg Body Mass Index (BMI) 56.5 Intake & Output: Intake and Output for Last 24 Hours 09/12/21 09/13/21 09/14/21 23:59 23:59 23:59 Intake Total 2300 / 2300 3053.33 / 3353.33 500 / 500 Output Total 2 / 2 Balance 2300 / 2300 3051.33 / 3351.33 500 / 500 Lab / Micro Data Result Diagrams: 09/13/21 04:16 09/13/21 04:16 Physical Exam Const alert and no apparent distress Resp normal respiratory effort, no retractions, no use of accessory muscles and clear to auscultation bilaterally Cardio regular rate, regular rhythm, S1 normal heart sound and S2 normal heart sound GI normal to inspection, nondistended, normoactive bowel sounds, soft to palpation, non-tender and non-distended Extremity normal to inspection Assessment & Plan Assessment/Plan (1) Chest pain: QUALIFIERS: Chest pain type: unspecified Qualified Code(s): R07.9 - Chest pain, unspecified (2) Bigeminy: PLAN: 1. Chest pain with intermittent bigeminy/HTN/morbid obesity ? Unfortunately he exceeds the weight limit of the stress test table therefore given his improvement in his chest pain and the fact that his troponins have remained negative we will have him follow-up with his PCP and schedule this as an outpatient at a facility that can do his stress test ? Advised weight loss, BMI of 56.5 ? Continue with his lisinopril, will hold off on making any blood pressure medication adjustment secondary to the fact that he is also going through alcohol withdrawal -Atypical. May be esophageal spasm. -No evidence of ACS. 2. Alcohol withdrawal/tobacco abuse ? Him and his are both going through alcohol withdrawal currently their last drink was Monday evening. ? Continue with the alcohol withdrawal protocol ? We will have him follow-up with 180 while here to develop an outpatient mary ellen tment plan ? Encouraged tobacco cessation 3. Gout ? Stable ? Continue with allopurinol 4. KAMILA ? Stable ? Continue with CPAP at night DVT: Lovenox
[2021-09-14] MEDS: Metoprolol Tartrate 25 MG Tablet PO (08:58)
[2021-09-14] MEDS: Famotidine 20 MG Tablet PO (08:59)
[2021-09-14] MEDS: Allopurinol 100 MG Tablet PO (08:59)
[2021-09-14] MEDS: Lisinopril 20 MG Tablet PO (09:02)
--- NOTE | 2021-09-14 09:42 | PCM.DC ---
Discharge Instructions Diet Discharge Diet: No restrictions Activity Discharge Activity: Return to Normal Activity Dressing / Incision Call your doctor if you observe: Shortness of breath and Chest pain Follow Up Care Test Results: Test results from this visit will be discussed in further detail at your follow-up appointment, if applicable. Discharge Plan Admission Admit Date/Time: 09/11/21 21:08 Primary Reason for Your Visit: alcohol withdrawal. Attending Provider: Win Roca Primary Care Provider: Care Physician,No Primary Consulting Providers: Hayley Ascencio ; Adis Martel Discharge Orders/Prescriptions Prescriptions: New aspirin 81 mg Tablet,Delayed Release (Dr/Ec) 81 mg PO BREAKFAST Qty: 30 RF: 0 multivitamin Tablet 1 tab PO DAILY Qty: 30 RF: 0 Continued allopurinol 100 mg Tablet 100 mg PO DAILY RF: 0 lisinopril 10 mg Tablet 10 mg PO DAILY RF: 0 Referrals / Follow Up: Rock Devlin MD [STAFF PHYSICIAN] - Within 2 Weeks (or another primary care physician. You will need to have a stress test at a facility that can accommodate your weight. ) Care Physician,No Primary [Primary Care Provider] - Disposition Disposition (needs filled in before D/C Order can be placed): Home, Self Care
--- NOTE | 2021-09-14 09:47 | PCM.DC.SUM ---
Providers Date of Admission: 09/11/21 Primary Care Physician: No Primary Care Phys Reason For Visit: CHEST PAIN Diagnosis Discharge Diagnosis (1) Chest pain: Status: Acute Code(s): R07.9 - Chest pain, unspecified Qualifiers: Chest pain type: unspecified Qualified Code(s): R07.9 - Chest pain, unspecified (2) Bigeminy: Status: Acute Code(s): I49.8 - Other specified cardiac arrhythmias Medications at Discharge Home Medications allopurinol 100 mg PO DAILY 09/11/21 lisinopril 10 mg PO DAILY 09/11/21 aspirin 81 mg PO BREAKFAST #30 tab 09/14/21 multivitamin 1 tab PO DAILY #30 tab 09/14/21 Hospital Course Operations None Procedures 2-D Echocardiogram Summary of Care Provided Minutes Spent on Discharge: 32 Hospital Course: 51-year-old male presents with chest pain that was midsternal associated with diaphoresis and nausea. Presented to the emergency room and was noted to have ventricular bigeminy. Patient also drinks fifth of vodka about every 2 to 3 days. Patient was admitted and had a troponin series were performed that was negative. Stress test was ordered but unable to be performed due to the patient's body habitus. Patient was 214kg which is too large for facility here. Fortunately, patient is no evidence of any acute coronary syndrome. My concern is patient may be having esophageal spasms that may be contributing to the symptoms but I told him definitely that we could not rule out this being cardiac. Patient will continue with aspirin and can resume work details as he was previously but alerted that if he is having recurrent chest pain and diaphoresis to come back and that he may require cardiac catheterization in the future but given the absence of any myocardial infarction or acute coronary syndrome at this time that was not indicated during this admission. Patient is here with his who is going through alcohol withdrawal as well and plan is for him to go to be discharged. Did encourage him to follow-up with programs as outpatient such as intensive outpatient to help maintain sobriety. Weight / BMI Weight Weight: 214.1 kg Body Mass Index (BMI) 56.5 ABG / Lab / Microbiology Data Result Diagrams: 09/13/21 04:16 09/13/21 04:16 D/C Instructions Discharge Diet: No restrictions Call your doctor if you observe: Shortness of breath and Chest pain Meaningful Use Info Meaningful Use Diagnoses (Choose all that apply): None applicable Discharge Plan Admission Admit Date/Time: 09/11/21 21:08 Primary Reason for Your Visit: alcohol withdrawal. Attending Provider: Win Roca Primary Care Provider: Care Physician,No Primary Consulting Providers: Hayley Ascencio ; Adis Martel Discharge Orders/Prescriptions Prescriptions: New aspirin 81 mg Tablet,Delayed Release (Dr/Ec) 81 mg PO BREAKFAST Qty: 30 RF: 0 multivitamin Tablet 1 tab PO DAILY Qty: 30 RF: 0 Continued allopurinol 100 mg Tablet 100 mg PO DAILY RF: 0 lisinopril 10 mg Tablet 10 mg PO DAILY RF: 0 Referrals / Follow Up: Rock Devlin MD [STAFF PHYSICIAN] - Within 2 Weeks (or another primary care physician. You will need to have a stress test at a facility that can accommodate your weight. ) Care Physician,No Primary [Primary Care Provider] - Disposition Disposition (needs filled in before D/C Order can be placed): Home, Self Care Charges/Coding Visit Charges Inpatient E&M: 04830 Disch Hosp
--- NOTE | 2021-09-14 10:08 | PHA.DC.MC ---
Pharmacy Service has performed discharge medication reconciliation and counseling for this patient. 1. ASPIRIN 81MG PO BREAKFAST 2. MULTIVITAMIN 1T PO DAILY The patient's discharge medication list was reviewed for discrepancies and discrepancies were resolved. Home Medications allopurinol 100 mg PO DAILY 09/11/21 lisinopril 10 mg PO DAILY 09/11/21 aspirin 81 mg PO BREAKFAST #30 tab 09/14/21 multivitamin 1 tab PO DAILY #30 tab 09/14/21 The patient was counseled on the following discharge medications and changes in medications for homegoing were reviewed. The Reason for Use, instructions for use, and potential side effects were reviewed for all new medications. The patient's questions regarding all of their medications were answered. The patient was able to verbally demonstrate an understanding of their discharge medications.
== END 2021-09-14 10:37 | disposition home or self-care (01) | DRG 313 ==
LOC: ED 17:37 → PCU 21:46
PROVIDERS: Admitting Provider Family Medicine; Emergency Provider Student in an Organized Health Care Education/Training Program
DX: R07.9 Chest pain, unspecified (principal); Z68.43 Body mass index [BMI] 50.0-59.9, adult; F10.139 Alcohol abuse with withdrawal, unspecified; E66.01 Morbid (severe) obesity due to excess calories; I10 Essential (primary) hypertension; M10.9 Gout, unspecified; F17.290 Nicotine dependence, other tobacco product, uncomplicated; K21.9 Gastro-esophageal reflux disease without esophagitis; F17.220 Nicotine dependence, chewing tobacco, uncomplicated; E78.5 Hyperlipidemia, unspecified; G47.33 Obstructive sleep apnea (adult) (pediatric); I16.0 Hypertensive urgency; I49.8 Other specified cardiac arrhythmias; Z79.82 Long term (current) use of aspirin; Y90.9 Presence of alcohol in blood, level not specified
CPT/HCPCS: 36415; 71045; 80048; 80053; 80061; 82077; 83735; 84100; 84484; 85025; 93005; 94002; 94003; 94660; 94762; 97802; 99285; 99406; J7030; J7050; A4216